=== PATIENT | female | born 1985 | race African-American/Black ===

== ENCOUNTER 2017-01-15 10:08 | Emergency (ER) | payer MEDICARE, MEDICAID ==
[~2017-01-15] VITALS: Ht 162.6 cm; Wt 72.1 kg
[~2017-01-15 10:08] MED LIST: DIPH25CA83 PO; REN400 PO
[2017-01-15] MEDS ORDERED: HYDROCODONE/ACETAMINOPHEN 5/325MG TABLET PO ONE (11:30)
[2017-01-15 12:13] VITALS: BP 114/74
== END 2017-01-15 13:05 | disposition home or self-care (01) ==
LOC: ER 10:57
DX: N75.1 Abscess of Bartholin's gland (principal); M32.9 Systemic lupus erythematosus, unspecified; F12.90 Cannabis use, unspecified, uncomplicated; N18.6 End stage renal disease; Z99.2 Dependence on renal dialysis
CPT/HCPCS: 99283

== ENCOUNTER 2017-01-17 09:00 | Emergency (ER) | payer MEDICARE, MEDICAID ==
[~2017-01-17] VITALS: Ht 162.6 cm; Wt 71.8 kg
[2017-01-17 11:12] VITALS: BP 110/69
[2017-01-17] MEDS ORDERED: LIDOCAINE HCL 1% 20ML VIAL (Pyxis) INJ MC ONE (12:00)
== END 2017-01-17 12:53 | disposition home or self-care (01) ==
LOC: ER 11:19
DX: N75.1 Abscess of Bartholin's gland (principal); M32.9 Systemic lupus erythematosus, unspecified; Z88.5 Allergy status to narcotic agent; Z79.899 Other long term (current) drug therapy; Z82.49 Family history of ischemic heart disease and other diseases of the circulatory system
CPT/HCPCS: 56420; 99284; J3490

== ENCOUNTER 2017-01-19 08:45 | Emergency (ER) | payer MEDICARE, MEDICAID ==
[~2017-01-19] VITALS: Ht 157.5 cm; Wt 63.0 kg
[2017-01-19] MEDS ORDERED: HYDROCODONE/ACETAMINOPHEN 5/325MG TABLET PO ONE (10:00)
[2017-01-19 11:18] VITALS: BP 96/64
== END 2017-01-19 12:15 | disposition home or self-care (01) ==
LOC: ER 12:13
DX: N76.0 Acute vaginitis (principal); M32.9 Systemic lupus erythematosus, unspecified; Z88.5 Allergy status to narcotic agent; Z79.899 Other long term (current) drug therapy; Z99.2 Dependence on renal dialysis
CPT/HCPCS: 99283

== ENCOUNTER 2017-01-22 09:53 | Emergency (ER) | payer MEDICARE, MEDICAID ==
[~2017-01-22] VITALS: Ht 162.6 cm; Wt 72.0 kg
[2017-01-22 10:31] VITALS: BP 109/73
== END 2017-01-22 11:19 | disposition home or self-care (01) ==
LOC: ER 10:54
DX: N75.1 Abscess of Bartholin's gland (principal); M32.9 Systemic lupus erythematosus, unspecified; Z88.5 Allergy status to narcotic agent; Z79.899 Other long term (current) drug therapy; Z99.2 Dependence on renal dialysis; Z48.01 Encounter for change or removal of surgical wound dressing
CPT/HCPCS: 99281